=== PATIENT | female | born 1990 | race Caucasian/White ===

== ENCOUNTER 2017-12-08 15:11 | Emergency (ER) | payer OTHER ==
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
[2017-12-08 15:45] VITALS: BP 127/55; PULSE 75; TEMP 98.6; BMI 29.2
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
--- NOTE | 2017-12-08 18:00 | EKG ---
Test Reason : Blood Pressure : / mmHG Vent. Rate : 076 BPM Atrial Rate : 076 BPM P-R Int : 152 ms QRS Dur : 078 ms QT Int : 342 ms P-R-T Axes : 040 036 026 degrees QTc Int : 384 ms NORMAL SINUS RHYTHM WITH SINUS ARRHYTHMIA NORMAL ECG NO PREVIOUS ECGS AVAILABLE Confirmed by STACEY CARR MD ([id number]) on 12/08/2017 5:59:57 PM Referred By: Confirmed By:STACEY CARR MD
== END 2017-12-08 17:15 | disposition home or self-care (01) ==
LOC: JERFT 15:11
DX: S20.211A Contusion of right front wall of thorax, initial encounter (principal); V43.62XA Car passenger injured in collision with other type car in traffic accident, initial encounter; Y92.488 Other paved roadways as the place of occurrence of the external cause; Y93.89 Activity, other specified; Y99.8 Other external cause status
CPT/HCPCS: 71046-TC-FY; 71120-TC-FY; 84703; 93005; 93010; 99281-25

== ENCOUNTER 2019-03-07 19:12 | Emergency (ER) | payer OTHER ==
[2019-03-07 19:28] VITALS: BP 114/71; PULSE 108; TEMP 99.6; BMI 31.8
[2019-03-07] MEDS ORDERED: DEXAMETHASONE LIQUID 0.5 MG/5 ML 240 ML BULK BOTTLE PO ONE (19:41)
[2019-03-07] MEDS ORDERED: ACETAMINOPHEN 500 MG TABLET (FP) PO ONE (19:41)
[2019-03-07] MEDS ORDERED: ACETAMINOPHEN 500 MG TABLET (FP) ONE (19:45)
[2019-03-07] MEDS ORDERED: ALBUTEROL SO4 2.5/IPRATROPIUM 0.5 INH SOL 3 ML VIAL.NEB. NEB ONE (19:45)
[2019-03-07] MEDS ORDERED: DEXAMETHASONE SOD PHOSPHATE 10 MG/1 ML VIAL ONE (19:45)
[2019-03-07] MEDS: ALBUTEROL SO4 2.5/IPRATROPIUM 0.5 INH SOL 3 ML VIAL.NEB. NEB SCH ×2 (19:49→20:02)
--- NOTE | 2019-03-07 19:56 | PDOC ---
History of Present Illness - General Chief Complaint: Shortness of Breath Stated Complaint: SOB Time Seen by Provider: 03/07/19 19:39 - History of Present Illness Initial Comments: 03/07/19 19:55 28-year-old female presents for evaluation of shortness of breath and mild cough with low-grade fever 3 days. No comorbidities. Past History - Past Medical History Allergies/Adverse Reactions: Allergies Allergy/AdvReac Type Severity Reaction Status Date / Time fish derived Allergy Unknown Verified 12/08/17 15:28 PEANUTS Allergy Unknown Uncoded 12/08/17 15:28 Home Medications: Ambulatory Orders Albuterol Sulfate Inhaler - [Ventolin HFA Inhaler -] 1 - 2 inh PO Q4H #1 inhaler 03/07/19 Cancer: Yes (RIGHT LEG LIPOSARCOMA) COPD: No - Immunization History Immunization Up to Date: No - Suicide/Smoking/Psychosocial Hx Smoking Status: Yes Smoking History: Current every day smoker Have you smoked in the past 12 months: Yes Number of Cigarettes Smoked Daily: 0 Information on smoking cessation initiated: Yes 'Breaking Loose' booklet given: 08/15/13 Hx Alcohol Use: No Drug/Substance Use Hx: Yes (Marijuana) Substance Use Type: Marijuana Review of Systems - Review of Systems Constitutional: Yes: Fever Respiratory: Yes: Cough *Physical Exam - Vital Signs Last Vital Signs Temp Pulse Resp BP Pulse Ox 99.6 F 108 H 18 114/71 98 03/07/19 19:24 03/07/19 19:24 03/07/19 19:24 03/07/19 19:24 03/07/19 19:54 - Physical Exam Comments: 03/07/19 19:55 HEAD: NC/AT EYES: Conjuntiva clear Ears: Canals and TM's normal NOSE: No d/c THROAT: Moist mucous membrances, oral pharanx clear, uvula midline NECK: Supple without adenopathy CARDIAC: S1 S2 LUNGS: CTA decreased breath sounds at the bases ABDOMEN: Soft NT ND MS: Full ROM in all joints without edema NEUROLOGIC: No gross sensory or motor deficits, NVID SKIN: Normal color and temperature no lesions or rashes ED Treatment Course - Medications Given in the ED: ED Medications Discontinued Medications Generic Name Dose Route Start Last Admin Trade Name Freq PRN Reason Stop Dose Admin Acetaminophen 1,000 mg 03/07/19 19:41 03/07/19 19:49 Tylenol - PO 03/07/19 19:42 1,000 mg ONCE ONE Administration Dexamethasone 10 mg 03/07/19 19:41 03/07/19 19:48 Decadron Liquid - PO 03/07/19 19:42 10 mg ONCE ONE Administration Medical Decision Making - Medical Decision Making 03/07/19 20:04 full equal breath sounds after 1 duo neb and decadron will d/c with asthmatic viral bronchitis *DC/Admit/Observation/Transfer Diagnosis at time of Disposition: Asthmatic bronchitis - Discharge Dispostion Disposition: HOME Condition at time of disposition: Stable Decision to Admit order: No - Referrals Referrals: Geneva Stoner [Primary Care Provider] - - Patient Instructions Printed Discharge Instructions: Acute Bronchitis Additional Instructions: please use the inhaler as directed. Return to the emergency room for worsening symptoms. Without fail, please follow-up with your primary care physician in 1- 2 days for further evaluation and treatment options. Tylenol Motrin as directed for fevers. - Post Discharge Activity
== END 2019-03-07 20:08 | disposition home or self-care (01) ==
LOC: JERFT 19:12
PROC: 3E0F7GC Introduction of Other Therapeutic Substance into Respiratory Tract, Via Natural or Artificial Opening (ICD-10-PCS; principal; 2019-03-07)
DX: J45.909 Unspecified asthma, uncomplicated (principal); F17.210 Nicotine dependence, cigarettes, uncomplicated; Z91.010 Allergy to peanuts; Z91.013 Allergy to seafood
CPT/HCPCS: 94640; 99281-25

== ENCOUNTER 2024-04-13 13:04 | Emergency (ER) | payer OTHER ==
[2024-04-13 13:21] VITALS: BP 121/68; PULSE 83; RESP 18; TEMP 98.8; BMI 28.0
[2024-04-13] MEDS ORDERED: ACETAMINOPHEN INJECTION 100 ML ONE (14:09)
[2024-04-13 14:13] LABS: BASO % 0.5 % (0-2.0); HEMATOCRIT 39.5 % (32.4-45.2); HEMOGLOBIN 12.9 GM/dL (10.7-15.3); LYMPH % 29.2 % (8-40); MCH 29.2 pg (25.7-33.7); MCHC 32.7 g/dl (32.0-36.0); MEAN CELL VOLUME 89.2 fl (80-96); MEAN PLT VOLUME 8.3 fl (7.5-11.1); MONO % 7.1 % (3.8-10.2); NEUT % 60.2 % (42.8-82.8); PLATELET COUNT 283 10^3/uL (134-434); RBC 4.43 M/mm3 (3.60-5.2); RDW 13.3 % (11.6-15.6); WHITE BLOOD COUNT 8.9 K/mm3 (4.0-10.0)
[2024-04-13] MEDS: ACETAMINOPHEN 1000 MG/100 ML BAG IVPB ONE (14:19)
[2024-04-13] MEDS: SODIUM CHLORIDE 0.9% 500 ML INFUS.BAG IV ONE (14:19)
[2024-04-13 14:40] LABS: CALCIUM 9.3 mg/dL (8.5-10.1)
[2024-04-13 14:42] LABS: ALBUMIN 3.7 g/dl (3.4-5.0); BLOOD UREA NITROGEN 14.1 mg/dL (7-18); MAGNESIUM 2.1 mg/dL (1.8-2.4)
[2024-04-13 14:44] LABS: CREATININE 0.7 mg/dL (0.55-1.3)
[2024-04-13 14:46] LABS: BILIRUBIN,TOTAL 0.3 mg/dL (0.2-1); TOT PROT 7.3 g/dl (6.4-8.2)
[2024-04-13 15:32] LABS: HIV INTERPRETATION NEGATIVE (NEGATIVE)
== END 2024-04-13 15:46 | disposition home or self-care (01) ==
LOC: JER 13:04
PROC: 3E033NZ Introduction of Analgesics, Hypnotics, Sedatives into Peripheral Vein, Percutaneous Approach (ICD-10-PCS; principal; 2024-04-13)
DX: R51.9 Headache, unspecified (principal)
CPT/HCPCS: 36415; 70450-TC; 80053; 83735; 84439; 84443; 84703; 85025; 86803; 87389; 96374; 99284-25; J0131